=== PATIENT | male | born 1975 | race Caucasian/White ===

== ENCOUNTER 2023-08-12 17:37 | Emergency (ER) | payer MEDICAID ==
[~2023-08-12] VITALS: Ht 167.6 cm; Wt 72.0 kg
[2023-08-12 17:51] VITALS: BP 154/92; TEMP 99.4; O2SAT 100
[2023-08-12 17:52] VITALS: PULSE 87; RESP 16
[2023-08-12] MEDS ORDERED: BACITRACIN ZINC OINT UDPKT TOP ONE (20:00)
[2023-08-12] MEDS ORDERED: LIDOCAINE HCL/PF 1% 10 MG/ML 5ML VIAL INFIL ONE (20:00)
[2023-08-12] MEDS ORDERED: SULF1TAB48 MT (20:15)
== END 2023-08-12 22:24 | disposition home or self-care (01) ==
LOC: ER 17:37
DX: L02.31 Cutaneous abscess of buttock (principal); Z98.890 Other specified postprocedural states
CPT/HCPCS: 10060; 99283